=== PATIENT | male | born 1965 | race Native Hawaiian/Other Pacific Islander ===

== ENCOUNTER 2016-10-09 01:04 | Emergency (ER) | payer OTHER ==
[~2016-10-09] VITALS: Ht 180.3 cm; Wt 131.5 kg
[~2016-10-09 01:04] MED LIST: BUSPIRONE15 MG PO; CELEXA20 MG PO; LISI20TA11 PO; LOVASTATIN20 MG OR
[2016-10-09 02:31] VITALS: BP 146/65; TEMP 98.7
== END 2016-10-09 02:40 | disposition home or self-care (01) ==
LOC: ED 01:04
DX: T78.1XXA Other adverse food reactions, not elsewhere classified, initial encounter (principal)
CPT/HCPCS: 96374; 96375; 99284; J1100; J1200; J2930

== ENCOUNTER 2017-02-22 15:41 | Emergency (ER) | payer OTHER ==
[~2017-02-22] VITALS: Ht 180.3 cm; Wt 133.4 kg
[2017-02-22 16:00] VITALS: TEMP 98.9
[2017-02-22 16:53] LABS: PLATELET COUNT 188 K/uL (142-355)
[2017-02-22 17:01] LABS: POTASSIUM 3.6 mmol/L (3.6-5.2)
[2017-02-22 17:46] VITALS: BP 123/87
== END 2017-02-22 17:47 | disposition home or self-care (01) ==
LOC: ED 15:41
DX: N45.1 Epididymitis (principal); N39.0 Urinary tract infection, site not specified
CPT/HCPCS: 36415; 80053; 81000; 85027; 87088; 96365; 96375; 99284; J0696; J2175; J2405

== ENCOUNTER 2019-02-13 03:05 | Emergency (ER) | payer OTHER ==
[~2019-02-13] VITALS: Ht 180.3 cm; Wt 145.2 kg
[2019-02-13 03:14] VITALS: TEMP 98.4
[2019-02-13 04:15] LABS: POTASSIUM 4.7 mmol/L (3.6-5.2)
[2019-02-13 04:27] LABS: PARTIAL THROMBOPLASTIN TIME 23.9 SECONDS (24.5-33.6)
[2019-02-13 04:40] LABS: PLATELET COUNT 288 K/uL (142-355)
[2019-02-13 07:05] VITALS: BP 149/81
== END 2019-02-13 07:27 | disposition short-term general hospital (02) ==
LOC: ED 03:05
PROVIDERS: Emergency Medicine
DX: S27.1XXA Traumatic hemothorax, initial encounter (principal); S22.31XA Fracture of one rib, right side, initial encounter for closed fracture; X58.XXXA Exposure to other specified factors, initial encounter; Y93.89 Activity, other specified; Y92.89 Other specified places as the place of occurrence of the external cause; E66.8 Other obesity
CPT/HCPCS: 80053; 81000; 83735; 85027; 85610; 85730; 96374; 96375; 96376; 99284; J2270; J2405

== ENCOUNTER 2019-02-13 07:00 | Outpatient (CLI) | payer OTHER | END 2019-02-13 08:30 | disposition short-term general hospital (02) | LOC: AMB 07:00 | DX: J94.2 Hemothorax (principal); S22.31XA Fracture of one rib, right side, initial encounter for closed fracture | CPT/HCPCS: A0425; A0429 ==

== ENCOUNTER 2019-03-28 15:52 | Emergency (ER) | payer OTHER ==
[~2019-03-28] VITALS: Ht 180.3 cm; Wt 145.2 kg
[2019-03-28 16:15] VITALS: TEMP 98.6
[2019-03-28 18:04] VITALS: BP 118/82
== END 2019-03-28 18:05 | disposition home or self-care (01) ==
LOC: ED 15:52
DX: S22.41XA Multiple fractures of ribs, right side, initial encounter for closed fracture (principal); S20.211A Contusion of right front wall of thorax, initial encounter; W18.39XA Other fall on same level, initial encounter; Y92.89 Other specified places as the place of occurrence of the external cause
CPT/HCPCS: 96372; 99283; J1885

== ENCOUNTER 2019-06-11 17:22 | Emergency (ER) | payer OTHER ==
[~2019-06-11] VITALS: Ht 180.3 cm; Wt 154.2 kg
[2019-06-11 20:08] LABS: PLATELET COUNT 193 K/uL (142-355)
[2019-06-11 20:19] LABS: POTASSIUM 4.4 mmol/L (3.6-5.2); SODIUM 130 mmol/L (136-145)
[2019-06-11 21:17] VITALS: BP 184/92; TEMP 100.5
== END 2019-06-11 21:17 | disposition home or self-care (01) ==
LOC: ED 17:22
PROVIDERS: Emergency Medicine
DX: I10 Essential (primary) hypertension (principal); D72.828 Other elevated white blood cell count
CPT/HCPCS: 80053; 82550; 82553; 83605; 83880; 84484; 85027; 87040; 93005; 96372; 99283; J0696

== ENCOUNTER 2019-10-23 07:46 | Day surgery (SDC) | payer OTHER | END 2019-10-23 09:23 | disposition home or self-care (01) | LOC: OR 07:46 | PROC: 3E0T3BZ Introduction of Anesthetic Agent into Peripheral Nerves and Plexi, Percutaneous Approach (ICD-10-PCS; principal; 2019-10-23) | PROC: 3E0T33Z Introduction of Anti-inflammatory into Peripheral Nerves and Plexi, Percutaneous Approach (ICD-10-PCS; 2019-10-23) | DX: M47.816 Spondylosis without myelopathy or radiculopathy, lumbar region (principal) | CPT/HCPCS: J1100; J2001 ==

== ENCOUNTER 2019-11-30 08:05 | Outpatient (CLI) | payer OTHER | END 2019-11-30 18:57 | disposition home or self-care (01) | LOC: CT 08:05 | DX: R10.11 Right upper quadrant pain (principal); K21.9 Gastro-esophageal reflux disease without esophagitis; F15.10 Other stimulant abuse, uncomplicated; F17.200 Nicotine dependence, unspecified, uncomplicated | CPT/HCPCS: 36415; 82565; 84520; Q9963 ==

== ENCOUNTER 2019-12-11 07:59 | Day surgery (SDC) | payer OTHER ==
[~2019-12-11] VITALS: Ht 30.5 cm; Wt 0.5 kg
== END 2019-12-11 09:19 | disposition home or self-care (01) ==
LOC: OR 07:59
PROC: 3E0T3BZ Introduction of Anesthetic Agent into Peripheral Nerves and Plexi, Percutaneous Approach (ICD-10-PCS; principal; 2019-12-11)
PROC: 3E0T33Z Introduction of Anti-inflammatory into Peripheral Nerves and Plexi, Percutaneous Approach (ICD-10-PCS; 2019-12-11)
DX: M47.816 Spondylosis without myelopathy or radiculopathy, lumbar region (principal)
CPT/HCPCS: J1100; J2001

== ENCOUNTER 2020-08-17 16:15 | Emergency (ER) | payer OTHER | END 2020-08-17 17:23 | disposition home or self-care (01) | LOC: ED 16:15 | PROC: 0HQEXZZ Repair Left Lower Arm Skin, External Approach (ICD-10-PCS; principal; 2020-08-17) | DX: S61.532A Puncture wound without foreign body of left wrist, initial encounter (principal); W01.110A Fall on same level from slipping, tripping and stumbling with subsequent striking against sharp glass, initial encounter; Y93.89 Activity, other specified; Y92.89 Other specified places as the place of occurrence of the external cause | CPT/HCPCS: 96372; 99283 ==

== ENCOUNTER 2020-12-24 19:46 | Emergency (ER) | payer OTHER ==
[~2020-12-24] VITALS: Ht 180.3 cm; Wt 158.8 kg
[2020-12-24 21:31] LABS: PLATELET COUNT 180 K/uL (142-355)
[2020-12-24 21:40] LABS: POTASSIUM 4.1 mmol/L (3.6-5.2)
[2020-12-24 23:45] VITALS: BP 118/77
== END 2020-12-24 23:45 | disposition home or self-care (01) ==
LOC: ED 19:46
PROVIDERS: Emergency Medicine Emergency Medical Services
DX: J45.901 Unspecified asthma with (acute) exacerbation (principal); R60.0 Localized edema; F17.210 Nicotine dependence, cigarettes, uncomplicated; Z20.822 Contact with and (suspected) exposure to COVID-19
CPT/HCPCS: 36415; 80053; 83880; 84484; 85027; 85379; 87040; 87635; 93005; 96365; 96375; 99284; J0696; J1940; J2930; Q9963; U0003

== ENCOUNTER 2021-05-03 15:53 | Emergency (ER) | payer OTHER ==
[~2021-05-03] VITALS: Ht 180.3 cm; Wt 158.8 kg
[2021-05-03 17:13] VITALS: BP 127/59; TEMP 98.7
== END 2021-05-03 17:13 | disposition home or self-care (01) ==
LOC: ED 15:53
DX: L03.116 Cellulitis of left lower limb (principal); L03.115 Cellulitis of right lower limb; M79.604 Pain in right leg
CPT/HCPCS: 96372; 99282; J1650

== ENCOUNTER 2021-05-04 10:31 | Outpatient (CLI) | payer OTHER | END 2021-05-04 19:07 | disposition home or self-care (01) | LOC: US 10:31 | PROVIDERS: ATTEND Physician Assistant | DX: M79.605 Pain in left leg (principal); M79.604 Pain in right leg; R60.0 Localized edema ==

== ENCOUNTER 2021-07-13 11:38 | Emergency (ER) | payer OTHER ==
[~2021-07-13] VITALS: Ht 180.3 cm; Wt 158.8 kg
[2021-07-13 11:51] VITALS: BP 135/69; TEMP 98.5
[2021-07-13 12:41] LABS: POTASSIUM 4.1 mmol/L (3.6-5.2)
[2021-07-13 13:07] LABS: PLATELET COUNT 170 K/uL (142-355)
== END 2021-07-13 14:05 | disposition home or self-care (01) ==
LOC: ED 11:38
PROVIDERS: Emergency Medicine Emergency Medical Services
DX: R60.0 Localized edema (principal)
CPT/HCPCS: 36415; 80053; 83735; 83880; 84484; 85027; 93005; 96375; 99284; J1940

== ENCOUNTER 2022-11-09 11:06 | Outpatient (CLI) | payer OTHER | END 2022-11-09 20:46 | disposition home or self-care (01) | LOC: RAD 11:06 | PROVIDERS: ATTEND Nurse Practitioner | DX: M25.511 Pain in right shoulder (principal) ==